=== PATIENT | female | born 1935 ===

== ENCOUNTER 2024-01-02 16:00 | Outpatient (CLI) | payer OTHER | END 2024-01-02 16:01 | disposition home or self-care (01) | LOC: EDBD → CSHSLEEP 16:00 | PROVIDERS: ATTEND Family Medicine | DX: R53.83 Other fatigue (principal); K21.9 Gastro-esophageal reflux disease without esophagitis; R06.83 Snoring; I51.9 Heart disease, unspecified; I48.0 Paroxysmal atrial fibrillation; G47.10 Hypersomnia, unspecified | CPT/HCPCS: 95800 ==